=== PATIENT | female | born 1970 | race Caucasian/White ===

== ENCOUNTER 2017-06-26 22:23 | Emergency (ER) | payer OTHER ==
[~2017-06-26] VITALS: Ht 162.6 cm; Wt 59.0 kg
[~2017-06-26 22:23] MED LIST: MACROBID 100 M100 MG PO; TRAMADOL HCL50 MG PO
[2017-06-26] MEDS ORDERED: IBUPROFEN200 M1 PO (22:39)
== END 2017-06-27 00:46 | disposition home or self-care (01) ==
LOC: ED 22:23
DX: G43.909 Migraine, unspecified, not intractable, without status migrainosus (principal); F17.200 Nicotine dependence, unspecified, uncomplicated
CPT/HCPCS: 96374; 96375; 99282; J0780; J1200; J1885; J7030

== ENCOUNTER 2022-03-16 04:56 | Emergency (ER) | payer OTHER ==
[~2022-03-16] VITALS: Ht 162.6 cm; Wt 78.6 kg
[~2022-03-16 04:56] MED LIST changes: +IBUPROFEN200 M1 PO
[2022-03-16] MEDS ORDERED: QUETIAPINE FUM150 MG PO (05:30)
[2022-03-16] MEDS ORDERED: SERTRALINE HCL50 MG PO (05:30)
[2022-03-16] MEDS ORDERED: TOPIRAMATE50 MG PO (05:30)
[2022-03-16] MEDS ORDERED: ARIPIPRAZOLE20 MG PO (05:31)
[2022-03-16] MEDS ORDERED: IMITREX50 MG PO (06:42)
== END 2022-03-16 07:08 | disposition home or self-care (01) ==
LOC: ED 04:56
DX: G43.909 Migraine, unspecified, not intractable, without status migrainosus (principal); F17.200 Nicotine dependence, unspecified, uncomplicated; Z79.899 Other long term (current) drug therapy
CPT/HCPCS: 96374; 96375; 99283-25; J0780; J1200; J1885; J7121

== ENCOUNTER 2022-11-27 07:00 | Emergency (ER) | payer OTHER ==
[~2022-11-27] VITALS: Ht 162.6 cm; Wt 81.3 kg
--- OUTSIDE RECORDS SUMMARY | ~2022-11-27 | XMS | Continuity of Care Document ---
Demographics + + + | Address | [address] [facility] | | | [place] [address] | + + + | Preferred Language | Unknown | + + + | Marital Status | Never | + + + | Sikh Affiliation | Unknown | + + + | Race | White | + + + | Ethnic Group | Not or | + + + Author + + + | Author | [facility] | + + + | Organization | [facility] | + + + | Address | [address] | | | [place] [address] | + + + | Phone | | + + + Care Team Providers + + + + | Care Operator Catalyst Concentration Name | Role | Phone | + + + + Unavailable | Unavailable | + + + + Unavailable | Unavailable | + + + + Allergies No information. Encounters No information. Functional Status No information. Immunizations No information. Medications + + + + | date | description | facility | + + + + | 2022-03-16 00:00 | TOPIRAMATE | [facility] | + + + + | 2022-03-16 00:00 | SUMATRIPTAN SUCCINATE | [facility] | + + + + | 2021-10-29 00:00 | IBUPROFEN | [facility] | + + + + | 2022-03-16 00:00 | IBUPROFEN | [facility] | + + + + | 2022-03-16 00:00 | SERTRALINE HCL | [facility] | + + + + | 2022-03-16 00:00 | ARIPIPRAZOLE | [facility] | + + + + | 2014-09-27 00:00 | NITROFURANTOIN MONOHYD | [facility] | | | MACROCR | | + + + + | 2014-09-27 00:00 | TRAMADOL HCL | [facility] | + + + + | 2022-03-16 00:00 | Quetiapine Fumarate | [facility] | + + + + Problems + + + + | date | description | facility | + + + + | 2014-09-27 00:00 | Acute urinary tract | [facility] | | | infection | | + + + + | 2015-12-27 00:00 | Encounter for medical | [facility] | | | screening examination | | + + + + | 2017-06-27 00:00 | Migraine headache | [facility] | + + + + | 2021-10-29 00:00 | Patient left without being | [facility] | | | seen | | + + + + Procedures No information. Results/Labs No information. Social History No information. Vital Signs + + + +---------+ | date | measurement | value | units | + + + +---------+ | 2021-10-29 00:00 | BMI | 28.6 | kg/m2 | + + + +---------+ | 2021-10-29 00:00 | BP_diastolic | 62 | mmHg | + + + +---------+ | 2021-10-29 00:00 | BP_systolic | 100 | mmHg | + + + +---------+ | 2021-10-29 00:00 | heart_rate | 79 | /min | + + + +---------+ | 2021-10-29 00:00 | height_metric | 162.56 | cm | + + + +---------+ | 2021-10-29 00:00 | height_standard | 64 | in | + + + +---------+ | 2021-10-29 00:00 | o2_saturation | 96 | % | + + + +---------+ | 2021-10-29 00:00 | respiration_rate | 16 | /min | + + + +---------+ | 2021-10-29 00:00 | temperature_metric | 36.61 | C | | | | | | + + + +---------+ | 2021-10-29 00:00 | | 97.9 | F | | | temperature_standar | | | | | d | | | + + + +---------+ | 2021-10-29 00:00 | weight_metric | 75.7 | kg | + + + +---------+ | 2021-10-29 00:00 | weight_standard | 166.89 | lb | + + + +---------+ | 2022-03-16 00:00 | BMI | 29.7 | kg/m2 | + + + +---------+ | 2022-03-16 00:00 | BP_diastolic | 69 | mmHg | + + + +---------+ | 2022-03-16 00:00 | BP_systolic | 100 | mmHg | + + + +---------+ | 2022-03-16 00:00 | heart_rate | 76 | /min | + + + +---------+ | 2022-03-16 00:00 | height_metric | 162.56 | cm | + + + +---------+ | 2022-03-16 00:00 | height_standard | 64 | in | + + + +---------+ | 2022-03-16 00:00 | o2_saturation | 99 | % | + + + +---------+ | 2022-03-16 00:00 | respiration_rate | 16 | /min | + + + +---------+ | 2022-03-16 00:00 | temperature_metric | 36.67 | C | | | | | | + + + +---------+ | 2022-03-16 00:00 | | 98 | F | | | temperature_standar | | | | | d | | | + + + +---------+ | 2022-03-16 00:00 | weight_metric | 78.6 | kg | + + + +---------+ | 2022-03-16 00:00 | weight_standard | 173.28 | lb | + + + +---------+"
--- OUTSIDE RECORDS SUMMARY | ~2022-11-27 | XMS | Continuity of Care Document ---
Demographics + + + | Address | [address] [facility] [address] | | | [place] [address] | + + + | Preferred Language | Unknown | + + + | Marital Status | Never | + + + | Sabianism Affiliation | Unknown | + + + | Race | White | + + + | Ethnic Group | Not or | + + + Author + + + | Author | [facility] | + + + | Organization | [facility] | + + + | Address | [address] | | | [place] [address] | + + + | Phone | | + + + Care Team Providers + + + + | Care Physician Practice Coordinator Name | Role | Phone | + + + + Unavailable | Unavailable | + + + + Unavailable | Unavailable | + + + + Allergies No information. Encounters No information. Functional Status No information. Immunizations No information. Medications + + + + | date | description | facility | + + + + | 2022-03-16 00:00 | TOPIRAMATE | [facility] | + + + + | 2022-03-16 00:00 | SUMATRIPTAN SUCCINATE | [facility] | + + + + | 2021-10-29 00:00 | IBUPROFEN | [facility] | + + + + | 2022-03-16 00:00 | IBUPROFEN | [facility] | + + + + | 2022-03-16 00:00 | SERTRALINE HCL | [facility] | + + + + | 2022-03-16 00:00 | ARIPIPRAZOLE | [facility] | + + + + | 2014-09-27 00:00 | NITROFURANTOIN MONOHYD | [facility] | | | MACROCR | | + + + + | 2014-09-27 00:00 | TRAMADOL HCL | [facility] | + + + + | 2022-03-16 00:00 | Quetiapine Fumarate | [facility] | + + + + Problems + + + + | date | description | facility | + + + + | 2014-09-27 00:00 | Acute urinary tract | [facility] | | | infection | | + + + + | 2015-12-27 00:00 | Encounter for medical | [facility] | | | screening examination | | + + + + | 2017-06-27 00:00 | Migraine headache | [facility] | + + + + | 2021-10-29 00:00 | [facility] left without being [facility] | | | seen | | + [...]
[~2022-11-27 07:00] MED LIST changes: +ARIPIPRAZOLE20 MG PO; +IMITREX50 MG PO; +QUETIAPINE FUM150 MG PO; +SERTRALINE HCL50 MG PO; +TOPIRAMATE50 MG PO
[2022-11-27] MEDS ORDERED: PROPRANOLOL HCL10 MG PO (07:12)
[2022-11-27] MEDS ORDERED: IMITREX50 MG PO (08:47)
[2022-11-27 08:54] VITALS: BP 132/70
== END 2022-11-27 08:54 | disposition home or self-care (01) ==
LOC: ED 07:00
DX: G43.909 Migraine, unspecified, not intractable, without status migrainosus (principal); F17.200 Nicotine dependence, unspecified, uncomplicated; Z79.899 Other long term (current) drug therapy
CPT/HCPCS: 96374; 96375; 99283-25; J0780; J1200; J1885; J7030

== ENCOUNTER 2023-03-02 03:39 | Emergency (ER) | payer OTHER ==
[~2023-03-02] VITALS: Ht 162.6 cm; Wt 85.0 kg
[~2023-03-02 03:39] MED LIST changes: +PROPRANOLOL HCL10 MG PO
[2023-03-02] MEDS ORDERED: IMITREX50 MG PO (03:56)
[2023-03-02 04:06] VITALS: BP 133/97
== END 2023-03-02 04:06 | disposition home or self-care (01) ==
LOC: ED 03:39
DX: G43.909 Migraine, unspecified, not intractable, without status migrainosus (principal); F17.200 Nicotine dependence, unspecified, uncomplicated; Z79.899 Other long term (current) drug therapy
CPT/HCPCS: 99283

== ENCOUNTER 2024-06-02 04:56 | Emergency (ER) | payer OTHER ==
[~2024-06-02] VITALS: Ht 162.6 cm; Wt 84.8 kg
[~2024-06-02 04:56] MED LIST changes: +CEPHALEXIN500 MG PO; +ONDANSETRON ODT4 MG PO; +PRILOSEC OTC20 MG PO
[2024-06-02] MEDS ORDERED: diazePAM 10 MG/2 ML SYR IM ONE (05:15)
[2024-06-02] MEDS ORDERED: KETOROLAC TROMETHAMINE 60 MG/2 ML VIAL IM ONE (05:15)
[2024-06-02] MEDS ORDERED: TRAMADOL HCL50 MG PO (05:26)
[2024-06-02] MEDS ORDERED: methylPREDNISolone 4 MG HOME.PACK PO ONE (05:30)
[2024-06-02] MEDS ORDERED: TRAMADOL HCL 50 MG HOME.PACK PO ONE (05:30)
[2024-06-02 06:05] VITALS: BP 124/78
== END 2024-06-02 06:05 | disposition home or self-care (01) ==
LOC: ED 04:56
DX: S39.012A Strain of muscle, fascia and tendon of lower back, initial encounter (principal); G43.909 Migraine, unspecified, not intractable, without status migrainosus; F17.200 Nicotine dependence, unspecified, uncomplicated; Z98.1 Arthrodesis status; Z79.899 Other long term (current) drug therapy; X50.0XXA Overexertion from strenuous movement or load, initial encounter
CPT/HCPCS: 72100; 96372; 99283; A9270; J1885; J3360

== ENCOUNTER 2024-12-23 02:24 | Emergency (ER) | payer OTHER ==
[~2024-12-23] VITALS: Ht 162.6 cm; Wt 83.6 kg
[~2024-12-23 02:24] MED LIST changes: +CYCLOBENZAPRINE10 MG PO; +PREDNISONE20 MG PO; +VITAMIN B COMP1 EACH PO; +VITAMIN D21250 MCG PO
[2024-12-23 03:47] LABS: BASOPHILS 1.0 % (0.1-1.2); EOSINOPHILS 10.2 % (0.7-5.8); LYMPHOCYTES 21.6 % (19.3-51.7); MCH 30.6 PG (25.6-32.2); MCHC 34.3 g/dL (32.2-35.5); MCV 89.0 fL (79.4-94.8); MONOCYTES 9.1 % (4.7-12.5); NEUTROPHILS 57.6 % (34.0-71.1); RBC 4.81 M/uL (3.93-5.22)
[2024-12-23 03:47] LABS: BLOOD/HGB, URINE NEGATIVE (Negative); KETONE, URINE NEGATIVE (Negative); LEUK ESTERASE, URINE NEGATIVE (negative); NITRITE, URINE NEGATIVE (negative)
[2024-12-23 03:57] LABS: ALT (SGPT) 64.0 U/L (14-59); AST (SGOT) 37.0 U/L (15-37); GLOMERULAR FILTRATION RATE,EST 91.0 mL/min (>60); PROTEIN, TOTAL 8.3 g/dL (6.4-8.2); UREA NITROGEN 17.0 mg/dL (7-18)
[2024-12-23 04:05] LABS: AMPHETAMINES, URINE POSITIVE (NEGATIVE); BARBITURATES, URINE NEGATIVE (NEGATIVE); BENZODIAZEPINE, URINE NEGATIVE (NEGATIVE); CANNABINOID, URINE NEGATIVE (NEGATIVE); COCAINE, URINE NEGATIVE (NEGATIVE); ECSTASY, URINE POSITIVE (NEGATIVE); FENTANYL, URINE NEGATIVE (NEGATIVE); METHADONE, URINE NEGATIVE (NEGATIVE); OPIATES, URINE NEGATIVE (NEGATIVE); OXYCODONE, URINE NEGATIVE (NEGATIVE); PHENCYCLIDINE, URINE NEGATIVE (NEGATIVE)
[2024-12-23] MEDS ORDERED: LACTATED RINGER'S 1,000 ML IV ONE (05:15)
[2024-12-23 05:18] VITALS: BP 122/78
== END 2024-12-23 05:18 | disposition home or self-care (01) ==
LOC: ED 02:24
PROVIDERS: Internal Medicine
DX: R10.11 Right upper quadrant pain (principal); F15.10 Other stimulant abuse, uncomplicated; F17.200 Nicotine dependence, unspecified, uncomplicated; Z79.899 Other long term (current) drug therapy
CPT/HCPCS: 36415; 74177; 80053; 80307; 81003; 83690; 84703; 85025; 99284-25; Q9967